=== PATIENT | female | born 1950 | race Caucasian/White ===

== ENCOUNTER 2022-04-23 18:02 | Emergency (ER) | payer MEDICARE, MEDICAID, SELFPAY ==
[2022-04-23 18:25] VITALS: BP 123/80; PULSE 98; RESP 15; TEMP 36.8; O2SAT 93; BMI 35.5
--- NOTE | 2022-04-23 19:11 | XRR_ITS ---
PROCEDURE INFORMATION: Exam: XR Right Shoulder Exam date and time: 04/23/2022 7:28 PM Age: 71 years old Clinical indication: Pain; Shoulder; Right; Additional info: Injury TECHNIQUE: Imaging protocol: Radiologic exam of the Right shoulder. Views: 2 or more views. COMPARISON: No relevant prior studies available. FINDINGS: Bones/joints: Osteopenia. There is proximal humeral fracture with slight comminution involving the humeral neck and greater tuberosity. Involvement of the lesser tuberosity may also be present. No obvious dislocation. Minimal chronic AC joint hypertrophy. There is slight displacement and probable minimal impaction. No significant angulation on these projections. Soft tissues: Normal. Other findings: Three views submitted. XR/XR shoulder RT min 2V* [id number] IMPRESSION: Proximal humeral fracture as described.
--- NOTE | 2022-04-23 19:11 | XRR_ITS ---
PROCEDURE INFORMATION: Exam: XR Right Humerus Exam date and time: 04/23/2022 7:28 PM Age: 71 years old Clinical indication: Pain; Upper arm; Right; Additional info: Fall TECHNIQUE: Imaging protocol: Radiologic exam of the Right humerus. Views: 2 or more views. COMPARISON: No relevant prior studies available. FINDINGS: Bones/joints: Osteopenia. There is proximal humeral fracture with slight comminution involving the humeral neck and greater tuberosity. Involvement of the lesser tuberosity may also be present. No obvious dislocation. Minimal chronic AC joint hypertrophy. There is slight displacement and probable minimal impaction. No significant angulation on these projections. No fracture of the mid/distal humerus. Soft tissues: Normal. Other findings: 2 views submitted. XR/[place] [id number] IMPRESSION: Proximal humeral fracture as described.
--- NOTE | 2022-04-23 19:51 | W.ED.EXTPRO ---
HPI - Extremity Problem General: Chief complaint: Extremity Injury, Upper Stated complaint: right arm injury, fall Time Seen by Provider: 04/23/22 19:35 Source: patient Mode of arrival: ambulatory Limitations: no limitations History of Present Illness: 71-year-old female states she had tripped over a stool roughly 30 minutes before arrival she states she has been trying to walk around and caught her foot and fell onto her right arm she has right proximal arm pain since the fall. States it is worse with movement she denies any other injury denies any neck pain denies any head pain. Associated symptoms: Deny chest pain, fever(s) or rash Review of Systems Const: Denies: fever(s), chills, body aches or change in appetite Eyes: Denies: blurry vision or eye discomfort ENMT: Denies: throat pain or dental pain Card: Denies: chest pain Resp: Denies: dyspnea GI: Denies: abdominal pain, nausea, vomiting or diarrhea : Denies: dysuria Musc: Reports: extremity pain Skin/Breast: Denies: rash Neuro: Denies: headache(s) Psych: Denies: depression Abhishek/Lymph: Denies: easy bruising All/Imm: Denies: urticaria PFSH ED PFSH: Medical History (Updated 04/23/22 @ 19:52 by Sheryl Adrian MD) No pertinent past medical history Social History (Updated 04/23/22 @ 19:52 by Sheryl Adrian MD) Substance/Drug Use: never Physical Exam Const: COMMON NORMALS: no acute distress and patient oriented x3 HENMT: COMMON NORMALS: normocephalic and atraumatic HEAD & SCALP: normocephalic and atraumatic Eye: COMMON NORMALS: conjunctivae normal CONJUNCTIVA: Yes conjunctivae normal Neck/C-Spine: COMMON NORMALS: full ROM and supple Chest: COMMONS NORMALS: normal inspection of the chest and normal palpation of entire chest wall Resp: COMMON NORMALS: normal respiratory effort and clear to auscultation bilaterally EFFORT & INSPECTION: Yes able to speak in complete sentences AUSCULTATION: clear to auscultation bilaterally Cardio: COMMON NORMALS: regular rate RATE: regular rate GI: INSPECTION: Yes normal to inspection Back/Pelvis: COMMON NORMALS: thoracic and lumbar spine normal to inspection and no thoracic nor lumbar tenderness Extremity: OTHER: Tenderness along proximal humerus distal pulses intact Neuro: COMMON NORMALS: patient oriented x3 Psych: COMMON NORMALS: mental status grossly normal Skin: COMMON NORMALS: no rashes or lesions noted GENERAL SKIN EXAM: no rashes or lesions noted Course Vital Signs: Vital signs: Vital Signs Temperature 98.2 F 04/23/22 18:25 Pulse Rate 98 04/23/22 18:25 Respiratory Rate 15 04/23/22 18:25 Blood Pressure 123/80 04/23/22 18:25 Pulse Oximetry 93 04/23/22 18:25 Oxygen Delivery Me thod 04/23/22 18:25 MDM - Extremity (Nontraumatic) Medical Decision Making Patient presents here with a humerus fracture from a fall she has no other injuries patient placed in a sling she is stable for discharge she is to follow-up with PCP and return if worsening she understands agrees to plan. Discharge Plan Discharge Patient Disposition: Home Clinical Impression: Fracture of humerus Qualifiers: Encounter type: initial encounter Humerus Location: proximal Fracture type: closed Laterality: right Condition: Stable Prescriptions: New hydrocodone-acetaminophen 5-325 mg tablet 1 tab PO Q6H PRN (Reason: pain) Qty: 14 0RF Discharge Orders: Discharge ED (Routine); Ordered 04/23/22 Ordered By: Sheryl Adrian Referrals: Robbi Christensen DO [Physician] - Discharge Diet: Advance as tolerated Discharge Activity: Resume usual activity Patient Instructions: Arm Fracture in Adults (ED), Opioid Safety Coding Level of Care Code ED Watch Electrician for Kapil Rodarte
--- NOTE | 2022-04-24 09:43 | DCPLANNER ---
Addendum entered by Judy Olmos 04/29/22 12:42: Patient had a follow up appointment scheduled with ortho - patient did attend appointment. Original Note: estimator project manager had message to schedule a follow up appointment for patient with ortho. estimator project manager sent patients information to the front office staff at ortho. Patients information will be printed and reviewed. Clinic will call patient with appointment information.
== END 2022-04-23 19:59 | disposition home or self-care (01) ==
PROVIDERS: Emergency Provider Emergency Medicine
DX: S42.201A Unspecified fracture of upper end of right humerus, initial encounter for closed fracture (principal); W18.09XA Striking against other object with subsequent fall, initial encounter
CPT/HCPCS: 73030; 73060; 99283

== ENCOUNTER → 2022-04-25 10:22 | Outpatient (BNVA) | payer MEDICARE, MEDICAID, SELFPAY | PROVIDERS: Referring Provider Emergency Medicine; Visit Provider Student in an Organized Health Care Education/Training Program | DX: W01.0XXA Fall on same level from slipping, tripping and stumbling without subsequent striking against object, initial encounter (principal); S42.201A Unspecified fracture of upper end of right humerus, initial encounter for closed fracture | CPT/HCPCS: 23620; 99204 ==

== ENCOUNTER → 2022-05-09 10:23 | Outpatient (BNVA) | payer MEDICARE, MEDICAID, SELFPAY | PROVIDERS: Visit Provider Student in an Organized Health Care Education/Training Program | DX: S42.201A Unspecified fracture of upper end of right humerus, initial encounter for closed fracture (principal); X58.XXXA Exposure to other specified factors, initial encounter | CPT/HCPCS: 73060; 99213 ==

== ENCOUNTER → 2022-07-14 14:04 | Outpatient (BNVA) | payer MEDICARE, MEDICAID, SELFPAY | PROVIDERS: Visit Provider Student in an Organized Health Care Education/Training Program | DX: S42.201D Unspecified fracture of upper end of right humerus, subsequent encounter for fracture with routine healing (principal); X58.XXXD Exposure to other specified factors, subsequent encounter | CPT/HCPCS: 73030; 99213 ==

== ENCOUNTER 2022-12-29 20:55 | Emergency (ER) | payer MEDICARE, SELFPAY ==
--- NOTE | 2022-12-29 21:11 | XRR_ITS ---
PROCEDURE INFORMATION: Exam: XR Chest Exam date and time: 12/29/2022 9:32 PM Age: 72 years old Clinical indication: Other: Weakness TECHNIQUE: Imaging protocol: Radiologic exam of the chest. Views: 1 view. COMPARISON: CR XR shoulder RT min 2V* [id number] 07/14/2022 2:20 PM FINDINGS: Lungs: Apparent hazy left basilar opacity. Pleural spaces: No pleural effusion. No pneumothorax. Heart/Mediastinum: Normal cardiomediastinal silhouette. Bones/joints: No acute osseous abnormality. Chronic right proximal humerus fracture deformity. XR/XR chest 1V portable [id number] IMPRESSION: Apparent hazy left basilar opacity favored to reflect a left pericardial fat pad. Focus of pneumonia in this region would be difficult exclude.
[2022-12-29 21:34] VITALS: BP 142/79; PULSE 113; RESP 18; TEMP 37.4; O2SAT 94; BMI 32.5
[2022-12-29 21:41] LABS: Basophils # 0.1 10^3/uL (0.0-0.1); Basophils % 0.9 %; Eosinophils # 0.1 10^3/uL (0.0-0.8); Eosinophils % 1.3 %; Hemoglobin 14.9 g/dL (11.5-15.3); Lymphocytes # 1.6 10^3/uL (0.8-4.8); Lymphocytes % 29.6 %; Mean Corpuscular HGB Conc 33.1 g/dL (30.0-36.0); Mean Corpuscular Hemoglobin 30.3 pg (28.0-34.0); Mean Corpuscular Volume 91.6 fl (81-99); Mean Platelet Volume 9.5 fL (7.4-10.4); Monocytes # 0.6 10^3/uL (0.2-0.9); Monocytes % 10.2 %; Neutrophils # 3.06 10^3/uL (1.8-7.7); Neutrophils % 57.1 %; Nucleated Red Blood Cells % 0 %; Platelet Count 151 10^3/cmm (130-400); Red Blood Count 4.91 10^6/uL (4.1-5.3); Red Cell Distribution Width 13.3 % (12.1-15.1); White Blood Count 5.4 10^3/uL (4.0-10.0)
[2022-12-29 21:46] LABS: Alanine Aminotransferase 61 U/L (0-33); Albumin Level 4.3 g/dL (3.5-5.2); Alkaline Phosphatase 89 U/L (35-105); Anion Gap 19.9 (5-19); Aspartate Amino Transferase 70 U/L (0-32); Blood Urea Nitrogen 10 mg/dL (8-23); Calcium 8.9 mg/dL (8.5-10.5); Carbon Dioxide 21 mmol/L (22-29); Chloride 96 mmol/L (98-107); Globulin 2.7 g/dL (1.3-4.6); Glucose 270 mg/dL (65-115); Osmolality Calculated 285 mOsm/kg (285-295); Potassium 3.9 mmol/L (3.5-5.1); Sodium 133 mmol/L (136-145); Total Bilirubin 0.4 mg/dL (0.15-1.2)
[2022-12-29] MEDS: sodium chloride 0.9% 1,000 ML 999 ML IV (22:30)
[2022-12-29 22:37] VITALS: BP 169/93; PULSE 98; O2SAT 90
--- NOTE | 2022-12-29 23:05 | ECG_ITS ---
[facility] Test Date: 2022-12-29 Pat Name: Gloria Chua Department: Room: Gender: Female Quality Control Lab Technician: : [id number] Requested By: Sheryl Adrian Order Number: [id number] Alan MD: Lisa Head M.D. Measurements Intervals Donner Rate: 104 P: 54 VT: 154 QRS: 65 QRSD: 83 T: 23 QT: 322 QTc: 425 Interpretive Statements SINUS TACHYCARDIA LOW QRS VOLTAGE IN PRECORDIAL LEADS [QRS DEFLECTION < 1.0 mV IN CHEST LEADS] POSSIBLE ANTERIOR MYOCARDIAL INFARCTION , PROBABLY OLD [30 ms Q WAVE IN V3/V4, OR R < 0.2 mV IN V4] ABNORMAL RHYTHM ECG No previous ECG available for comparison Electronically Signed On 12-30-2022 6:41:05 CDT by Lisa Head M.D. [email or web address]
[2022-12-29 23:14] VITALS: BP 154/76; PULSE 96; O2SAT 89
[2022-12-29 23:33] VITALS: PULSE 103; RESP 18; O2SAT 93
[2022-12-29] MEDS: albuterol 2.5 mg/3 mL Neb INHALATION (23:33)
[2022-12-29 23:36] VITALS: PULSE 102; RESP 18; O2SAT 94
[2022-12-29] MEDS: acetaminophen 500 mg Tablet 1000 MG PO (23:52)
[2022-12-30 00:19] VITALS: BP 156/82; PULSE 89; O2SAT 91
[2022-12-30 00:30] LABS: Add Urine Microscopic? NO; Charge for UA Resulting for Rev
[2022-12-30 00:40] LABS: Bilirubin Urine Neg (Negative); Blood Urine Neg (Negative); Glucose Urine UA 4+ (Normal); Ketones Urine 1+ (Negative); Leukocyte Esterase Urine Negative (Negative); Nitrate Urine Negative (Negative); Protein Urine Neg (Negative); Urine Appearance Clear (CLEAR); Urine Color Yellow (Yellow); Urobilinogen Urine Neg (Negative); pH Urine 5 (5-7)
--- NOTE | 2022-12-30 00:43 | ED_ITS ---
HPI - General Adult General: Chief complaint: General Medical Stated complaint: positive covid test, weakness, stiff neck, Time Seen by Provider: 12/29/22 22:34 Source: patient Mode of arrival: ambulatory Limitations: no limitations History of Present Illness: 72-year-old female states she was outside in the heat yesterday working felt like she may have got overheated she states today she been having some weakness along with headaches cough and some dyspnea. She states she also had a fever up to 101.4. She is in no distress here speaking full sentences pulse ox does dip to 90 at times while she is resting awake it is 93%. She states she took a home COVID test that was positive. Associated symptoms: Deny chest pain, dyspnea, headache(s), nausea, rash or vomiting Review of Systems Const: Denies: fever(s), chills, body aches or change in appetite Eyes: Denies: blurry vision or eye discomfort ENMT: Denies: throat pain or dental pain Card: Denies: chest pain Resp: Denies: dyspnea GI: Denies: abdominal pain, nausea, vomiting or diarrhea : Denies: dysuria Musc: Denies: neck pain or back pain Skin/Breast: Denies: rash Neuro: Denies: headache(s) Psych: Denies: depression Abhishek/Lymph: Denies: easy bruising All/Imm: Denies: urticaria PFSH ED PFSH: Medical History Closed fracture of right proximal humerus No pertinent past medical history Social History Substance/Drug Use: never Physical Exam Const: COMMON NORMALS: no acute distress, patient oriented x3 and healthy appearing HENMT: COMMON NORMALS: normocephalic and atraumatic HEAD & SCALP: normocephalic and atraumatic Neck/C-Spine: COMMON NORMALS: full ROM, supple and no meningeal signs Chest: COMMONS NORMALS: normal inspection of the chest and normal palpation of entire chest wall Resp: COMMON NORMALS: normal respiratory effort, No retractions, No use of accessory muscles and clear to auscultation bilaterally AUSCULTATION: clear to auscultation bilaterally Cardio: COMMON NORMALS: regular rate, regular rhythm and No murmurs present (Cardio) RATE: regular rate RHYTHM: regular rhythm GI: COMMON NORMALS: Normal to inspection, nondistended, normoactive bowel sounds present, Soft to palpation, non-tender and no masses PALPATION: Yes Soft to palpation Extremity: COMMON NORMALS: normal to inspection and full ROM Neuro: COMMON NORMALS: patient oriented x3, moves all extremities and no focal motor deficits MENINGEAL SIGNS: Yes no meningeal signs Psych: COMMON NORMALS: mental status grossly normal, Normal thought process present and cooperative THOUGHT PROCESS: Normal thought process present Skin: COMMON NORMALS: no rashes or lesions noted and no wounds GENERAL SKIN EXAM: no rashes or lesions noted Course Vital Signs: Vital signs: Vital Signs Temperature 99.4 F 12/30/22 01:54 Pulse Rate 89 12/30/22 01:54 Respiratory Rate 18 12/30/22 01:54 Blood Pressure 156/82 12/30/22 01:54 Pulse Oximetry 91 12/30/22 01:54 Oxygen Delivery Me thod Room Air 12/30/22 00:19 MDM - General Adult Medical Decision Making Patient presents here with fever along with shortness of breath she did test positive for COVID she feels much improved here after breathing treatment and fluids patient has no confusion here. Her vital signs are normal I did offer her admission as she has some mild hypoxia she states she wants to go home on home oxygen we will prescribe her Paxil did she is to follow-up with her PCP and return if worsening. Lab Data 12/29/22 21:22 12/29/22 21:22 Radiology Impressions Chest X-Ray 12/29/22 21:11 IMPRESSION: Apparent hazy left basilar opacity favored to reflect a left pericardial fat pad. Focus of pneumonia in this region would be difficult exclude. Laboratory Results WBC 5.4 10^3/uL (4.0-10.0) 12/29/22 21: RBC 4.91 10^6/uL (4.1-5.3) 12/29/22 21: Hgb 14.9 g/dL (11.5-15.3) 12/29/22 21: Hct 45.0 % (37.0-47.0) 12/29/22 21: MCV 91.6 fl (81-99) 12/29/22 21: MCH 30.3 pg (28.0-34.0) 12/29/22 21: MCHC 33.1 g/dL (30.0-36.0) 12/29/22 21: RDW 13.3 % (12.1-15.1) 12/29/22 21: Plt Count 151 10^3/cmm (130-400) 12/29/22 21: MPV 9.5 fL (7.4-10.4) 12/29/22 21: Neut % (Auto) 57.1 % 12/29/22 21: Lymph % (Auto) 29.6 % 12/29/22 21: [place] % (Auto) 10.2 % 12/29/22 21: Eos % (Auto) 1.3 % 12/29/22 21: Baso % (Auto) 0.9 % 12/29/22 21: Neut # (Auto) 3.06 10^3/uL (1.8-7.7) 12/29/22 21: Lymph # (Auto) 1.6 10^3/uL (0.8-4.8) 12/29/22 21: [place] # (Auto) 0.6 10^3/uL (0.2-0.9) 12/29/22 21: Eos # (Auto) 0.1 10^3/uL (0.0-0.8) 12/29/22 21: Baso # (Auto) 0.1 10^3/uL (0.0-0.1) 12/29/22 21: Nucleated RBC % (auto) 0 % 12/29/22 21: Nucleated RBCs # 0.0 /100WBC 12/29/22 21: Sodium 133 mmol/L (136-145) L 12/29/22 21: Potassium 3.9 mmol/L (3.5-5.1) 12/29/22 21: Chloride 96 mmol/L (98-107) L 12/29/22 21: Carbon Dioxide 21 mmol/L (22-29) L 12/29/22 21: Anion Gap 19.9 (5-19) H 12/29/22 21: BUN 10 mg/dL (8-23) 12/29/22 21: Creatinine 0.8 mg/dL (0.5-0.9) 12/29/22 21: GFR Calculation Not Reportable 12/29/22 21: Glucose 270 mg/dL (65-115) H 12/29/22 21:22 Calculated Osmolality 285 mOsm/kg (285-295) 12/29/22 21: Calcium 8.9 mg/dL (8.5-10.5) 12/29/22 21: Total Bilirubin 0.4 mg/dL (0.15-1.2) 12/29/22 21:22 AST 70 U/L (0-32) H 12/29/22 21: ALT 61 U/L (0-33) H 12/29/22 21: Alkaline Phosphatase 89 U/L (35-105) 12/29/22 21: Total Protein 7.0 g/dL (6.6-8.7) 12/29/22 21: Albumin 4.3 g/dL (3.5-5.2) 12/29/22 21: Globulin 2.7 g/dL (1.3-4.6) 12/29/22 21: Urine Color Yellow (Yellow) 12/30/22 00:20 Urine Appearance Clear (CLEAR) 12/30/22 00:20 Urine pH 5 (5-7) 12/30/22 00:20 Ur Specific [place] 1.020 (1.005-1.030) 12/30/22 00:20 Urine Protein Neg (Negative) 12/30/22 00:20 Urine Glucose (UA) 4+ (Normal) H 12/30/22 00:20 Urine Ketones 1+ (Negative) H 12/30/22 00:20 Urine Blood Neg (Negative) 12/30/22 00:20 Urine Nitrate Negative (Negative) 12/30/22 00:20 Urine Bilirubin Neg (Negative) 12/30/22 00:20 Urine Urobilinogen Neg mg/dL (Negative) 12/30/22 00:20 Ur Leukocyte Esterase Negative (Negative) 12/30/22 00:20 SARS-CoV-2 Ag (Rapid) positive (Negative) 12/30/22 00:00 Discharge Plan Discharge Patient Disposition: Home Clinical Impression: COVID-19 Condition: Stable Prescriptions: New Paxlovid (EUA) 300 mg (150 mg x 2)-100 mg tablets,dose pack See Rx Instructions .ROUTE .COMPLEX Qty: 30 0RF Rx Instructions: take TWO 150 mg tablets of nirmatrelvir with ONE 100 mg tablet of ritonavir twice daily for 5 days No Action hydrocodone-acetaminophen 5-325 mg tablet 1 tab PO Q6H PRN (Reason: pain) 7 Days Qty: 28 0RF Discharge Orders: Discharge ED (Routine); Ordered 12/30/22 Ordered By: Sheryl Adrian Other Ambulatory Orders: DME: Oxygen (Order) Location: None Selected Ordered By: Sheryl Adrian Referrals: William Ramírez, ANP [Primary Care Provider] - 1-3 days Discharge Diet: Advance as tolerated Discharge Activity: Resume usual activity Patient Instructions: COVID-19 (Coronavirus Disease 2019) (ED) Coding Level of Care Code ED International Sales Representative for Kapil Rodarte
[2022-12-30 00:46] LABS: SARS Covid-2 Antigen positive (Negative)
[2022-12-30] MEDS: dexamethasone 10 mg/mL INJ IVP (00:52)
[2022-12-30 01:54] VITALS: BP 156/82; PULSE 89; RESP 18; TEMP 37.4; O2SAT 91
== END 2022-12-30 01:56 | disposition home or self-care (01) ==
PROVIDERS: Emergency Provider Emergency Medicine; PCP Nurse Practitioner Family
DX: U07.1 COVID-19 (principal)
CPT/HCPCS: 36415; 71045; 80053; 81003; 85025; 87040; 87426; 93005; 94640; 96361; 96374; 99285; J1100; J7030; J7613